=== PATIENT | female | born 1945 | race Native Hawaiian/Other Pacific Islander ===

== ENCOUNTER 2023-01-10 16:15 | Outpatient (CLI) | payer BC | END 2023-01-10 19:42 | disposition home or self-care (01) | LOC: RAD 16:15 | PROVIDERS: ATTEND Nurse Practitioner Family | DX: M79.604 Pain in right leg (principal); M25.511 Pain in right shoulder; M25.552 Pain in left hip; M25.551 Pain in right hip; W19.XXXA Unspecified fall, initial encounter ==

== ENCOUNTER 2023-02-27 11:45 | Emergency (ER) | payer BC ==
[~2023-02-27] VITALS: Ht 160 cm; Wt 577.9 kg
[2023-02-27 11:45] VITALS: TEMP 97.8
[2023-02-27 12:21] LABS: POTASSIUM 3.4 mmol/L (3.6-5.2)
[2023-02-27 12:22] LABS: PLATELET COUNT 275 K/uL (152-353)
[2023-02-27 14:37] VITALS: BP 136/62
== END 2023-02-27 15:00 | disposition short-term general hospital (02) ==
LOC: ED 11:45
PROVIDERS: Emergency Medicine Emergency Medical Services
DX: S72.011A Unspecified intracapsular fracture of right femur, initial encounter for closed fracture (principal); W06.XXXA Fall from bed, initial encounter; Y92.89 Other specified places as the place of occurrence of the external cause
CPT/HCPCS: 80048; 85027; 96365; 96374; 96375; 99284; J2270; J2405

== ENCOUNTER 2023-05-22 21:07 | Emergency (ER) | payer BC ==
[~2023-05-22] VITALS: Ht 160 cm; Wt 59.0 kg
[2023-05-22 21:38] LABS: PLATELET COUNT 260 K/uL (152-353)
[2023-05-22 22:46] LABS: POTASSIUM 3.5 mmol/L (3.6-5.2)
[2023-05-22 23:42] VITALS: BP 125/70; TEMP 97.8
== END 2023-05-22 23:42 | disposition home or self-care (01) ==
LOC: ED 21:07
PROVIDERS: Family Medicine
PROC: 2W3 Placement, Anatomical Regions, Immobilization (ICD-10-PCS; principal; 2023-05-22)
DX: S52.201A Unspecified fracture of shaft of right ulna, initial encounter for closed fracture (principal); S52.91XA Unspecified fracture of right forearm, initial encounter for closed fracture; S02.85XA Fracture of orbit, unspecified, initial encounter for closed fracture; W19.XXXA Unspecified fall, initial encounter; N39.0 Urinary tract infection, site not specified; F03.90 Unspecified dementia, unspecified severity, without behavioral disturbance, psychotic disturbance, mood disturbance, and anxiety; R53.81 Other malaise; I35.0 Nonrheumatic aortic (valve) stenosis
CPT/HCPCS: 36415; 80053; 81000; 85027; 87077; 87086; 87088; 87186; 99283